=== PATIENT | female | born 1970 | race Caucasian/White ===

== ENCOUNTER → 2017-09-14 | Outpatient (CLI) | payer BC ==
[~2017-09-14] MED LIST: CALCIUM; CYMBALTA60 MG PO; FLEXERIL PO; HYDROCODON-ACE1 EAC7 PO; IBUPROFEN 600600 M1 PO; MAXALT MLT ODT10 M1 PO; MULTIVITAMINS PO; NORCO 5-325 TA1 EACH PO; VITAMIN D400 UNI1; [UNRECOGNIZED DRUG - OTHER]
== END ==
LOC: ULTRA 10:55
DX: N63.20 Unspecified lump in the left breast, unspecified quadrant (principal)

== ENCOUNTER → 2017-09-22 | Outpatient (CLI) | payer BC | LOC: RAD 09-08 11:19 | DX: Z12.31 Encounter for screening mammogram for malignant neoplasm of breast (principal) ==

== ENCOUNTER → 2018-08-30 | Outpatient (CLI) | payer BC | LOC: RAD 09:16 | DX: Z12.31 Encounter for screening mammogram for malignant neoplasm of breast (principal) ==

== ENCOUNTER 2019-06-12 07:59 | Day surgery (SDC) | payer BC ==
[~2019-06-12] VITALS: Ht 177.8 cm; Wt 124.7 kg
[~2019-06-12 07:59] MED LIST changes: +BENICAR40 MG PO; +CRESTOR10 MG PO; +MOBIC15 MG PO; +PRILOSEC OTC20 MG PO; +RIZATRIPTAN10 MG PO; +TRAMADOL 50 MG50 MG PO; +VITAMIN D2000 UNIT PO
[2019-06-12 09:21] VITALS: BP 135/71
[2019-06-12 12:45] VITALS: BP 135/71
--- NOTE | 2019-06-12 14:17 | EKG ---
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: nancy : 1970 Requested By: Leif Salmon Order Number: [id number] MD: Aldo Murdock Measurements Intervals [place] Rate: 73 P: 58 ID: [id number] QRS: -8 QRSD: 107 T: 18 QT: 399 QTc: 440 Interpretive Statements Sinus rhythm Baseline wander in lead(s) III,V3 Compared to ECG 07/06/2013 11:39:35 Sinus arrhythmia no longer present Electronically Signed On 06-12-2019 14:16:53 CDT by Aldo Murdock [email or web address] ��������������������������������������������� <ELECTRONICALLY SIGNED> ���������������������������������������� By: Aldo Murdock MD ��������������������������������������������� 06/12/19 1418 0842 0842 Aldo Murdock MD /ASHOK
--- NOTE | 2019-06-12 17:48 | O ---
[address] [address] OPERATIVE REPORT Name: BELLA MATAMOROS Room #: DEP [facility]..#: [id number] Admission: 06/12/19 ������������������ Attend Phys: Leif Salmon MD Discharge: 06/12/19 ������������������ Date of : 70 Report #: [id number] THIS REPORT FOR: //name// CC: Leif Chandler DATE OF SERVICE: 06/12/2019 SERVICE: Orthopedics. FACILITY: [facility]. SURGEON: Leif Salmon MD DIRECTOR HEDIS: Shereen Dobson NP. INDICATION FOR DIRECTOR HEDIS: Extremity positioning, arthroscope and extremity manipulation and management assistance with the debridement. COMPLICATIONS: None. DRAINS: None. SPECIMENS: None. ANESTHESIA: General. PREOPERATIVE DIAGNOSES: 1. Left elbow fracture, subluxation. 2. Left elbow loose bodies. 3. Left elbow humeral capitellum fracture. POSTOPERATIVE DIAGNOSES: 1. Left elbow fracture, subluxation. 2. Left elbow loose bodies. 3. Left elbow humeral capitellum fracture. 4. Left elbow radial head fracture. PROCEDURES: 1. Left elbow arthroscopic loose body removal 2. Left elbow extensive arthroscopic debridement with synovectomy COMPLICATIONS: None. DRAINS: None. [address] [address] OPERATIVE REPORT Name: BELLA MATAMOROS Room #: DEP [facility]#: [id number] Admission: 06/12/19 ������������������ Attend Phys: Leif Salmon MD Discharge: 06/12/19 ������������������ Date of : 70 Report #: [id number] SPECIMENS: None. FINDINGS: 1. Intact ulnohumeral joint. 2. Multiple loose bodies within the joint, removed, the largest measuring 8 x 4 x 4 mm with the second largest measuring 7 x 3 x 2 mm and several additional fragments were removed. 3. Synovitis treated with synovectomy. 4. Stable radiocapitellar joint with no significant ligamentous injury. 5. Grade 4 articular cartilage lesion of the lateral aspect of the capitellum. HISTORY AND INDICATIONS: The patient is a 48-year-old female who sustained a fall last week and came into the clinic with x-rays demonstrating a fracture. She underwent CT scan, which confirmed the presence of fracture, demonstrated loose bodies within the joint. She was indicated for surgical treatment for an optimal outcome and we discussed risks, benefits, alternatives and indications for surgical treatment. Risks include but not limited to pain, bleeding, infection, injury to nerves or blood vessels, persistent pain despite surgical intervention, malunion, nonunion, need for further surgery including further treatment of the osteochondral injury as well as complications related to anesthesia such as stroke, heart attack, pulmonary complications, thromboembolic disease and . Despite the risks, she wished to proceed. PROCEDURE IN DETAIL: After left upper extremity was correctly identified in preoperative holding area as the operative extremity, the patient was taken to the operating room where general anesthesia was induced without complication. She was turned into lateral decubitus position with left side up, right side down. She was padded appropriately. Prophylactic antibiotics were administered at appropriate time. Tourniquet was applied to the left arm. Left upper extremity was then prepped and draped in standard sterile fashion. Time-out procedure was performed. Esmarch was utilized. Tourniquet inflated to 250 mmHg. A 30 mL of sterile saline was infiltrated into the joint via posterior approach. Then, a skin aquiles incision was made to establish anteromedial portal. The loose body and hematoma in the front of the elbow was obscuring view and made difficult to safely obtain access to the anterolateral portal at this particular point, so I made a direct posterior portal and a posterolateral accessory portal in the typical fashion to perform debridement posteriorly to ensure there were no loose bodies posteriorly and to allow for better fluid circulation and better fluid distention. A proximal anterolateral portal was then established in typical fashion. The scope was placed into the elbow and the shaver was then brought in through the proximal anteromedial portal and a synovectomy was then performed anteriorly as well with the shaver as was performed in the posterior aspect of the shoulder. Care was taken to protect the anterior soft tissues. [address] [address] OPERATIVE REPORT Name: BELLA MATAMOROS JEREMIAH Room #: DEP [facility] M.R.#: [id number] Admission: 06/12/19 ������������������ Attend Phys: Leif Salmon MD Discharge: 06/12/19 ������������������ Date of : 70 Report #: [id number] There was a traumatic rent within the anterior capsule, so we were cautious with fluid pressure as well as usage of the shaver. Multiple osteochondral fragments were lavaged with a total of 6-8 were removed. The largest off of the humeral side was primarily chondral in substance and was resected with the shaver. The radial head appeared normal except that a portion could be visualized with the elbow in maximal pronation and there was an osteochondral fracture of the edge of the radial head in this area and this was resected with the shaver. I switched the scope to the anteromedial portal and then brought the shaver anterolaterally and then switched back in order to complete the resection of the fragments. All loose bodies were able to be removed in full without difficulty and then the scope was placed posteriorly once again within the left anteriorly to ensure good visualization and good fluid circulation and the medial and lateral gutters were carefully evaluated posteriorly to ensure there were no residual loose bodies and no further synovitis. After this was completed, instruments were removed and the arthroscopic effusion was drained. Portal sites were closed. Sterile dressing was applied. The patient was awakened from anesthesia and taken to recovery room in stable condition. There were no complications. All counts were recorded as correct. Postoperative plan will be for active and active assist range of motion of the elbow with passive range of motion starting at approximately 3 weeks and 5-pound lifting restriction for at least 4 weeks. ��������������������������������������������� <ELECTRONICALLY SIGNED> ���������������������������������������� By: Leif Salmon MD ��������������������������������������������� 06/12/19 1748 1508 1613 Leif Salmon MD /nt
== END 2019-06-12 11:34 | disposition home or self-care (01) ==
LOC: OR 07:59 → TBA 08:00 → OR 09:07
DX: S53.102A Unspecified subluxation of left ulnohumeral joint, initial encounter (principal); S42.452A Displaced fracture of lateral condyle of left humerus, initial encounter for closed fracture; M24.022 Loose body in left elbow; M65.88 Other synovitis and tenosynovitis, other site; S52.122A Displaced fracture of head of left radius, initial encounter for closed fracture; I10 Essential (primary) hypertension; E78.5 Hyperlipidemia, unspecified; G43.909 Migraine, unspecified, not intractable, without status migrainosus; K21.9 Gastro-esophageal reflux disease without esophagitis; Z90.49 Acquired absence of other specified parts of digestive tract; Z98.890 Other specified postprocedural states; Z79.899 Other long term (current) drug therapy; X58.XXXA Exposure to other specified factors, initial encounter; Y93.89 Activity, other specified; Y92.89 Other specified places as the place of occurrence of the external cause; Y99.8 Other external cause status
CPT/HCPCS: 50010; 50101; 50172; 50386; 52313; 54170; 55430; 56527; 57091; 57103; 62110; 62900; 70005

== ENCOUNTER → 2019-08-30 | Outpatient (CLI) | payer BC | LOC: BC 09:02 | DX: Z12.31 Encounter for screening mammogram for malignant neoplasm of breast (principal) ==

== ENCOUNTER 2019-09-19 09:12 | Emergency (ER) | payer BC ==
[~2019-09-19] VITALS: Ht 177.8 cm; Wt 122.5 kg
[2019-09-19] MEDS ORDERED: NORCO 5-325 TA1 EAC1 PO (10:21)
[2019-09-19] MEDS ORDERED: NORFLEX100 MG PO (10:21)
[2019-09-19] MEDS ORDERED: NAPROSYN500 MG PO (10:21)
[2019-09-19 10:37] VITALS: BP 156/91
== END 2019-09-19 10:38 | disposition home or self-care (01) ==
LOC: ER 09:12
DX: M54.16 Radiculopathy, lumbar region (principal); K21.9 Gastro-esophageal reflux disease without esophagitis; I10 Essential (primary) hypertension; E78.5 Hyperlipidemia, unspecified; G43.909 Migraine, unspecified, not intractable, without status migrainosus; Z98.890 Other specified postprocedural states; Z90.49 Acquired absence of other specified parts of digestive tract; Z90.89 Acquired absence of other organs

== ENCOUNTER → 2020-05-09 | Outpatient (CLI) | payer BC ==
[~2020-05-09] MED LIST changes: +ASPIR 8181 MG PO; +CLARITIN10 M3 PO; +MS CONTIN15 MG PO; +NAPROSYN500 MG PO; +NEURONTIN 300M300 M2 PO; +NORCO 5-325 TA1 EAC1 PO; +NORFLEX100 MG PO; +TIZANIDINE4 MG/1 TA1 PO
== END ==
LOC: LAB 11:34
PROVIDERS: ATTEND Student in an Organized Health Care Education/Training Program
DX: Z01.812 Encounter for preprocedural laboratory examination (principal); Z20.828 Contact with and (suspected) exposure to other viral communicable diseases

== ENCOUNTER 2020-05-14 12:13 | Inpatient (IN) | payer BC ==
[2020-05-07 09:14] LABS: HEMATOCRIT 38.1 % (37.0-47.0); HEMOGLOBIN 12.9 gm/dL (12.0-15.0); MCH 31.1 pg (26.0-34.0); MCV 91.6 fL (80.0-100.0); RBC 4.15 mil/uL (4.20-5.00); RDW 13.8 % (10.5-14.5); WBC 6.1 thou/uL (4.0-11.0)
[2020-05-07 09:36] LABS: ALBUMIN 3.7 g/dL (3.4-5.0); CALCIUM 8.9 mg/dL (8.5-10.1); CREATININE 0.8 mg/dL (0.6-1.0); POTASSIUM 4.2 mmol/L (3.5-5.1); URINE BILIRUBIN NEGATIVE (Negative); URINE BLOOD NEGATIVE (Negative); URINE CLARITY CLEAR; URINE COLOR YELLOW; URINE GLUCOSE-RANDOM* NEGATIVE (Negative); URINE KETONES NEGATIVE (Negative); URINE LEUKOCYTES-REFLEX NEGATIVE (Negative); URINE NITRITE-REFLEX NEGATIVE (Negative); URINE PROTEIN (DIPSTICK) NEGATIVE (Negative); URINE SPECIFIC GRAVITY 1.025 (1.005-1.035); URINE UROBILINOGEN 0.2 E.U./dl (0.2-1.0)
--- NOTE | 2020-05-07 15:50 | EKG ---
[facility] Trina Kitchen [place] [address] ELECTROCARDIOGRAM REPORT Name: BELLA MATAMOROS Room #: PRE [facility] M.R.#: [id number] Admission: Attend Phys: Tejas Everett MD Discharge: Date of : 70 Report #: [id number] THIS REPORT FOR: cc: Bruce Chandler Steven F. DO Couchonnal, Luis F. 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
[~2020-05-14] VITALS: Ht 177.8 cm; Wt 124.7 kg
--- NOTE | ~2020-05-14 | O ---
[facility] [place] [address] OPERATIVE REPORT Name: BELLA MATAMOROS Room #: 150-4 [facility] M.R.#: [id number] Admission: 05/14/20 Attend Phys: Tejas Everett MD Discharge: Date of : 70 Report #: [id number] THIS REPORT FOR: cc: Bruce Chandler,Tejas Mendez MD ~ CC: Tejas Chandler DATE OF SERVICE: 05/14/2020 PREOPERATIVE DIAGNOSIS: Bilateral knee medial compartment osteoarthritis. POSTOPERATIVE DIAGNOSIS: Bilateral knee medial compartment osteoarthritis. PROCEDURE: Bilateral knee medial compartment arthroplasty using Navio robotic assistance. SURGEON: Tejas Everett MD. HYDROELECTRIC STATION OPERATOR CHIEF: Bushra Powell PA-C. INDICATIONS FOR HYDROELECTRIC STATION OPERATOR CHIEF: Throughout the case, extensive retraction and manipulation of the knees were required. This was afforded to me by my licensed sales assistant. ANESTHESIA: LMA with adductor canal blocks. IMPLANTS: For bilateral knees; a size 3 Journey II Oxinium medial femoral component, a size 2 tibial component and a size 8 polyethylene. TOURNIQUET TIME: 44 minutes for the right and 48 minutes for the left. ESTIMATED BLOOD LOSS: 50 mL. COMPLICATIONS: None. SPECIMENS: None. CONDITION UPON LEAVING THE OPERATING ROOM: Stable. INDICATIONS FOR PROCEDURE: The patient is a 49-year-old female with bilateral knee medial compartment osteoarthritis. She had failed conservative measures for this and after discussion with her, she elected for bilateral medial compartment knee arthroplasty. [facility] [place] [address] OPERATIVE REPORT Name: BELLA MATAMOROS Room #: 150-4 [facility] M.R.#: [id number] Admission: 05/14/20 Attend Phys: Tejas Everett MD Discharge: Date of : 70 Report #: [id number] DESCRIPTION OF PROCEDURE: Risks, benefits, alternatives, complications were discussed in detail with the patient including but not limited to risk of anesthesia, risk of damage to nerves, arteries, blood vessels, risk for infection, bleeding, risk for continued knee pain, need for reoperation. Informed consent was obtained from the patient. Bilateral knees were appropriately marked in the preoperative holding area. Adductor canal block was placed by Anesthesia. IV Ancef was given for preoperative antibiotics. She was brought to the operating room and placed in supine position on operating room table. LMA anesthesia was induced without complication. Tourniquet was placed on bilateral thighs. Bilateral lower extremities were prepped and draped in normal sterile fashion. Timeout was performed properly identifying the patient and procedure as well as the instrumentation. All in the operating room were in agreement. Following dictation applies to both knees. Lower extremity was exsanguinated, tourniquet was inflated. Tourniquet time again was 48 minutes for the left and 44 minutes for the right knee. An anterior midline approach was made with 10 blade through the skin. Dissection was taken down sharply to the fascia and deep flaps were developed medially and laterally. Fresh 10 blade was used to make a medial parapatellar arthrotomy and the knee was inspected. There was severe medial compartment osteoarthritis with well-maintained lateral and patellofemoral compartments. ACL was intact. It was decided to proceed with unicompartmental knee arthroplasty. Reference pins were placed in the femur and the tibia. The knee was then digitally mapped using the StartMe robotic system. Intraoperative plan was made and we sized with size 3 femur with a size 2 tibia and a 9 spacer. After acceptance of the intraoperative plan, the tibial and femoral resections were made with a Navio bur. Tibial resection was cleaned with a rasp and tibia was sized, found to be a size 2. A size 2 tibial trial was pinned and drilled. A size 3 femoral trial was placed and this was then trialed with a size 8 polyethylene. The size 8 polyethylene demonstrated 1-2 millimeters of laxity medially throughout range of motion of the knee. Trial components were removed. Bony ends were thoroughly irrigated with normal saline. A final size 2 tibia, size 3 Journey II Oxinium femur were cemented in place using standard cementation techniques. While the cement cured, a periarticular injection consisting of morphine, ropivacaine, epinephrine and Toradol was placed around the knee joint capsule. After the cement cured, the tourniquet was deflated. Hemostasis was obtained with Bovie cautery. A final size 8 polyethylene was placed. A gram of vancomycin was placed deep in the joint. Fascia was closed with 0 Vicryl, skin was closed with 2-0 Vicryl, 3-0 Monocryl. Dermabond and CHENCHO dressings were applied. The patient tolerated this procedure well and went to the recovery room under care of anesthesia postoperatively. By: [id number] Tejas Everett MD /janina
[~2020-05-14 12:13] MED LIST changes: -ASPIR 8181 MG PO; -MS CONTIN15 MG PO; -NEURONTIN 300M300 M2 PO
[2020-05-14 13:34] VITALS: BP 135/76
[2020-05-14 20:38] VITALS: BP 143/89
[2020-05-14 21:00] VITALS: BP 165/85
--- NOTE | 2020-05-14 21:08 | NUR ---
PATIENT ADMITTED FORM OR ARRIVED ON THE UNIT AT 1900, PATIENT HAD JARETH KNEE REPLACEMENTS, CHENCHO DRESSING, SCD'S, KNEE HIGH JOANNA HOSE, POLAR PACKS. PATIENT C/O NAUSEA, ZOFRAN 4MG IV GIVEN, PATIENT C/O PAIN WITH JARETH KNEES, HYDROCODONE 1 TABLET GIVEN. RIGHT UPPER IV IN PLACE, D5 1/2 NS STARTED AT 100CC/HR. PATIENT GIVEN CRACKERS, JELLO, YOGURT, AND LEMON-ROSEBUD SODA GIVEN, ALSO WATER. ADMISSION DONE AND COMPLETED, REPORT GIVEN TO JENNY/RN.
[2020-05-15 00:02] VITALS: BP 153/80
[2020-05-15 03:09] VITALS: BP 136/70
--- NOTE | 2020-05-15 03:36 | NUR ---
ASSESSED AT START OF SHIFT. PT A&OX4 WITH JARETH KNEE SX. CHENCHO DRESSING, POLAR PACK, SCD'S AND TEDHOSE IN PLACE. PAIN MANAGED WITH PO PILL. IV INTACT AND FLUIDS INFUSING. PT TRIED TO VOID VIA BEDPAN NO OUTPUT. BLADDER SCAN DONE AND 1600 POST VOID PT EXPRESSED RELIEF. FALL PREC IN PLACE, CALL LIGHT IN REACH WILL CONT TO MONITOR
[2020-05-15 05:28] LABS: HEMATOCRIT 34.7 % (37.0-47.0); HEMOGLOBIN 11.7 gm/dL (12.0-15.0); MCH 30.6 pg (26.0-34.0); MCHC 33.6 g/dL (28.0-37.0); RBC 3.81 mil/uL (4.20-5.00); RDW 13.8 % (10.5-14.5); WBC 12.5 thou/uL (4.0-11.0)
[2020-05-15 07:30] VITALS: BP 127/78
[2020-05-15] MEDS ORDERED: MS CONTIN15 MG PO (11:27)
[2020-05-15] MEDS ORDERED: HYDROCODON-ACE1 EAC7 PO (11:27)
[2020-05-15] MEDS ORDERED: ASPIR 8181 MG PO (11:27)
[2020-05-15] MEDS ORDERED: NEURONTIN 300M300 M2 PO (11:28)
--- NOTE | 2020-05-15 14:48 | NUR ---
PT ADMITTED RELATED TO JARETH UNICOMPARTMENTAL KNEE REPLACEMENTS. CM REVIEWED CHART AND SPOKE WITH CARE TEAM. CM MET WITH PT AND SPOUSE AT BEDSIDE THIS DAY. CM ROLE INTRODUCED. PT INDICATED SHE LIVES IN A HOUSE WITH HER FAMILY WITH 2 STEPS TO ENTER AND 22 STEPS INSIDE. 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 PT INDICATED NO DME PILOT CONTROL OPERATOR HELPER. PT WAS ISSUED A FWW BY PROVIDER PLUS. PT INDICATED SHE IS ESTABLISHED WITH OP PT AT [facility] FIRST APPOINTMENT ON TUESDAY. PT INDICATED SHE PLANS TO RETURN HOME ONCE MEDICALLY STABLE. CARE TEAM INDICATING THEY ARE AWAITING AFTERNOON PT TREAT TO DETERMINE IS PT IS MEDICALLY STABLE TO DC HOME TODAY. PT IS SET WITH FWW AND OUTPATIENT REHAB APPOINTMENT. NO OTHER CM INTERVENTION INDICATED AT THIS TIME.
[2020-05-15 16:35] VITALS: BP 124/53
--- NOTE | 2020-05-15 18:14 | NUR ---
PT IS AOX4, VSS, PAIN IN BLE CONTROLLED WITH ORAL PAIN ANALGESIC. PT HAS JOANNA HOSES, SCD, AND POLAR PACK. FALL PRECAUTIONS IN PLACE, CALL LIGHT IN REACH. WILL CONTINUE TO MONITOR.
[2020-05-15 19:50] VITALS: BP 130/74
--- NOTE | 2020-05-16 02:13 | NUR ---
ASSUMED CARE OF PT AT 1900. PT IS A/O X4. DRSGS ARE C/D/I. JOANNA HOSE, POLAR PACK, AND SCD'S IN PLACE. PT C/O PAIN, AND INSOMNIA. PRN PAIN AND SLEEP MEDICATION GIVEN DIRECTED. PT IS CURRENTLY IN BED AND APPEARS TO BE SLEEPING. FALL PRECAUTIONS ARE IN PLACE, CALL LIGHT IS WITHIN REACH. WILL CONTINUE TO MONITOR.
[2020-05-16 05:03] LABS: HEMATOCRIT 34.1 % (37.0-47.0); HEMOGLOBIN 11.6 gm/dL (12.0-15.0); MCH 31.3 pg (26.0-34.0); MCHC 34.2 g/dL (28.0-37.0); MCV 91.7 fL (80.0-100.0); RBC 3.72 mil/uL (4.20-5.00); RDW 14.4 % (10.5-14.5); WBC 10.2 thou/uL (4.0-11.0)
[2020-05-16 08:32] VITALS: BP 146/85
--- NOTE | 2020-05-16 17:23 | NUR ---
Assumed care of pt at 0700. Pt a&ox4. Pain controlled with prn pain meds. Dressings c/d/i. Polar packs in place. JOANNA hoshome and SCDs in place. Pt worked with physical therapy. Possible d/c tomorrow. Heating pad provided per pt request. Call light within reach. Fall precautions in place. Will continue to monitor.
[2020-05-16 17:41] VITALS: BP 154/80
[2020-05-16 19:00] VITALS: BP 147/82
--- NOTE | 2020-05-17 03:22 | NUR ---
ASSESSMENT COMPLETED. PT IS UP WITH ASSIST X 1 TO THE BSC. JARETH KNEES WITH CHENCHO DRSG WELL POLAR PAKS IN PLACE. SCDS AND TEDS IN PLACE. DENIES NAUSEA AND VOMITING. CALLS APPROPRIATELY.
[2020-05-17 03:45] VITALS: BP 136/86
[2020-05-17 05:28] LABS: HEMATOCRIT 35.6 % (37.0-47.0); HEMOGLOBIN 11.8 gm/dL (12.0-15.0); MCH 30.7 pg (26.0-34.0); MCHC 33.3 g/dL (28.0-37.0); MCV 92.4 fL (80.0-100.0); RBC 3.85 mil/uL (4.20-5.00); RDW 14.6 % (10.5-14.5)
[2020-05-17 07:15] VITALS: BP 129/83
[2020-05-17 08:30] VITALS: BP 129/83
[2020-05-17 11:28] VITALS: BP 129/83
[2020-05-17 12:54] VITALS: BP 129/83
== END 2020-05-17 12:45 | disposition home or self-care (01) | DRG 462 ==
LOC: OR 12:13 → TBA 12:13 → OR 13:05 → 4S 17:45 → TBA 19:36 → 4S 05-17 12:45
PROVIDERS: ADMIT Orthopaedic Surgery; ATTEND Orthopaedic Surgery
PROC: 0SRD0L9 Replacement of Left Knee Joint with Medial Unicondylar Synthetic Substitute, Cemented, Open Approach (ICD-10-PCS; principal; 2020-05-14)
PROC: 8E0Y0CZ Robotic Assisted Procedure of Lower Extremity, Open Approach (ICD-10-PCS; principal; 2020-05-14)
PROC: 0SRC0L9 Replacement of Right Knee Joint with Medial Unicondylar Synthetic Substitute, Cemented, Open Approach (ICD-10-PCS; principal; 2020-05-14)
DX: M17.2 Bilateral post-traumatic osteoarthritis of knee (principal); Z79.899 Other long term (current) drug therapy
CPT/HCPCS: 10102; 50010; 50101; 50415; 50915; 50954; 51130; 51225; 51320; 51771; 53078; 53370; 54118; 56527; 56528; 57095; 57103; 57110; 57127; 57180; 62110; 62900; 64039; 70005

== ENCOUNTER → 2020-08-28 | Outpatient (CLI) | payer BC ==
[~2020-08-28] MED LIST changes: +ASPIR 8181 MG PO; +MS CONTIN15 MG PO; +NEURONTIN 300M300 M2 PO
== END ==
LOC: BC 08:58
PROVIDERS: ATTEND Neuromusculoskeletal Medicine & OMM
DX: Z12.31 Encounter for screening mammogram for malignant neoplasm of breast (principal)

== ENCOUNTER → 2021-08-14 | Outpatient (CLI) | payer BC ==
[~2021-08-14] MED LIST changes: +GABAPENTIN600 M1 PO; +MAGNESIUM400 M1 PO; +MULTI VITAMIN1 EACH PO; +PROBIOTIC1 EAC6 PO
[2021-08-14 09:31] LABS: HEMATOCRIT 36.7 % (37.0-47.0); HEMOGLOBIN 12.1 gm/dL (12.0-15.0); MCV 88.1 fL (80.0-100.0); RBC 4.16 mil/uL (4.20-5.00); RDW 14.3 % (10.5-14.5); WBC 5.2 thou/uL (4.0-11.0)
[2021-08-14 09:41] LABS: INR 0.95; PROTIME 10.4 Seconds (10.5-12.1)
[2021-08-14 09:57] LABS: URINE BILIRUBIN NEGATIVE (Negative); URINE BLOOD NEGATIVE (Negative); URINE CLARITY CLEAR; URINE COLOR YELLOW; URINE GLUCOSE-RANDOM* NEGATIVE (Negative); URINE KETONES NEGATIVE (Negative); URINE LEUKOCYTES-REFLEX NEGATIVE (Negative); URINE NITRITE-REFLEX NEGATIVE (Negative); URINE PROTEIN (DIPSTICK) NEGATIVE (Negative); URINE SPECIFIC GRAVITY >= 1.030 (1.005-1.035); URINE UROBILINOGEN 0.2 E.U./dl (0.2-1.0)
[2021-08-14 10:05] LABS: CALCIUM 9.2 mg/dL (8.5-10.1); CREATININE 0.8 mg/dL (0.6-1.0); POTASSIUM 4.3 mmol/L (3.5-5.1)
--- NOTE | 2021-08-17 07:31 | EKG ---
[address] [address] ELECTROCARDIOGRAM REPORT Name: BELLA MATAMOROS Room #: [facility]#: [id number] Admission: 08/14/21 Attend Phys: Tejas Everett MD Discharge: Date of : 70 Report #: [id number] [facility] Test Date: 2021-08-14 Test Time: 09:19:09 Pat Name: BELLA MATAMOROS Department: Room: Gender: F Gamemaster: CLARITZA CHAPARRO : 1970 Requested By: Tejas Everett Order Number: [id number] : Bill Rosas Measurements Intervals [place] Rate: 76 P: 70 NM: 190 QRS: -4 QRSD: 101 T: 23 QT: 387 QTc: 436 Interpretive Statements Sinus rhythm Compared to ECG 05/07/2020 09:10:16 No significant changes Electronically Signed On 08-17-2021 7:31:16 DRIVER COURIER by Bill Rosas [email or web address] <ELECTRONICALLY SIGNED> By: Bill Rosas MD, [facility] 08/17/21 0731 8 8 Bill Rosas MD, FACC /EPI
== END ==
LOC: PAC 08:44
PROVIDERS: ATTEND Orthopaedic Surgery
DX: Z01.812 Encounter for preprocedural laboratory examination (principal); T84.038A Mechanical loosening of other internal prosthetic joint, initial encounter

== ENCOUNTER → 2021-08-17 | Outpatient (CLI) | payer BC | LOC: BC 08:56 | PROVIDERS: ATTEND Neuromusculoskeletal Medicine & OMM | DX: Z12.31 Encounter for screening mammogram for malignant neoplasm of breast (principal); N64.89 Other specified disorders of breast ==

== ENCOUNTER 2021-08-26 09:14 | Observation (INO) | payer BC ==
[~2021-08-26] VITALS: Ht 175.3 cm; Wt 122.5 kg
[2021-08-26 10:38] VITALS: BP 137/79
--- NOTE | 2021-08-26 17:19 | NUR ---
ADMITTED TO 4S FOR RIGHT TOTAL KNEE REPLACEMENT. A/O X 4. ROOM AIR. BEDREST. RIGHT HAND IV WITH D5 1/2 NS INFUSING @ 100 MLS/HR. CHENCHO DRESSING ON RIGHT KNEE AND POLAR PACK ON RIGHT KNEE. BILATERAL TEDS ON AND SCDS. AT BEDSIDE. PAIN 5/10 NORCO GIVEN PRN.
[2021-08-26 20:55] VITALS: BP 127/75
--- NOTE | 2021-08-27 01:36 | NUR ---
ASSESSMENT COMPLETED. PT IS ALERT AND ORIENTED. PLEASANT. LEFT KNEE WITH POLAR RYAN IN PLACE. SHE ALSO HAS SCDS AND TEDS IN PLACE. PT BEEN ABLE TO WALK TO THE BATHROOM WITH SBA, SHE IS VOIDING OKAY. DENIES NAUSEA OR VOMITING-REPORTS THE DIZZINESS IS MUCH BETTER.GOOD CSM TO R FOOT. CALLIHT WITHIN REACH.
[2021-08-27 08:12] VITALS: BP 121/75
--- NOTE | 2021-08-27 09:19 | NUR ---
ASSUMED PT CARE THIS AM. PT IS ALERT & ORIENTED X4. PT HAS IV SITE ON RHAND RUNNING D5 1/2 NS @100ML/HR. PT IS ON ROOM AIR. PT HAS BILATERAL JOANNA HOSES, CHENCHO DRESSING, [facility], SCD. PT C/O OF PAIN AND GIVEN PAIN MEDICATION PER PT REQUEST. PHYSICAL THERAPY WILL BE WORKING WITH PT THIS AM. PT IS UP WITH ASSIST X1 WITH GAITBELT AND WALKER TO THE BATHROOM. WILL CONTINUE TO MONITOR PT. FOLLOW POC.
--- NOTE | 2021-08-27 09:57 | NUR ---
Cm visited with jessica at bedside, check to see if she is needed any DME. She has FWW and outpt therapy is set up for [facility] in [facility].
[2021-08-27 14:29] VITALS: BP 121/75
--- NOTE | 2021-08-31 09:55 | O ---
[facility] [place] [address] OPERATIVE REPORT Name: BELLA MATAMOROS Room #: 448-P [facility] Tolu Geiger#: [id number] Admission: 08/26/21 Attend Phys: Tejas Everett MD Discharge: 08/27/21 Date of : 70 Report #: [id number] THIS REPORT FOR: cc: Naomie Crisostomo Beth RNP Abraham, Scott M. MD ~ DATE OF SERVICE: 08/26/2021 PREOPERATIVE DIAGNOSIS: Right knee medial compartment knee arthroplasty, aseptic loosening. POSTOPERATIVE DIAGNOSIS: Right knee medial compartment knee arthroplasty, aseptic loosening. PROCEDURES: Conversion of a medial compartment knee arthroplasty to a total knee arthroplasty using Navio robotic assistance. SURGEON: Tejas Everett MD MANAGER SCHOOL: Bushra Powell PA-C. INDICATION FOR MANAGER SCHOOL: Throughout the case, extensive retraction, manipulation of the knee was required. This was afforded to me by my seo assistant. ANESTHESIA: LMA with adductor canal block. IMPLANTS: A [employer] size 5 Journey II BCS Oxinium femur, size 4 tibia, size 10 constrained polyethylene and size 29 patella. TOURNIQUET TIME: 70 minutes. ESTIMATED BLOOD LOSS: 25 mL. COMPLICATIONS: None. SPECIMENS: None. CONDITION UPON LEAVING THE OR: Stable. INDICATIONS FOR PROCEDURE: The patient is a 50-year-old female who is over a year out from bilateral unicompartmental knee arthroplasties of left knee, did very well; however, she has had continued pain in the right knee and a workup to determine her source of pain was performed, she had a bone scan that showed increased uptake along her medial tibial component as well as lucency. On her x-ray, it was felt that she was demonstrating an aseptic loosening after ruling of out infection. After discussion with her regarding options, she elected for [facility] [address] [place] [address] OPERATIVE REPORT Name: BELLA MATAMOROS JEREMIAH Room #: 448-P [facility] Tolu Geiger#: [id number] Admission: 08/26/21 Attend Phys: Tejas Everett MD Discharge: 08/27/21 Date of : 70 Report #: [id number] conversion to total knee arthroplasty. DESCRIPTION OF PROCEDURE: Risks, benefits, alternatives, complications were discussed in detail with the patient including but not limited to risk of anesthesia, risk of damage to nerves, arteries, blood vessels, risk for infection, bleeding, risk for continued knee pain, need for reoperation. Informed consent was obtained from the patient. Right knee was appropriately marked in the preoperative holding area. Adductor canal block was placed by Anesthesia. She was brought to the operating room and placed in supine position on the operating table. LMA anesthesia was induced without complication. Tourniquet was placed on the right thigh. Right lower extremity was prepped and draped in normal sterile fashion. Timeout was performed properly identifying the patient and procedure as well as the instrumentation and implants. All in the operating room in agreement. Right lower extremity was exsanguinated and tourniquet inflated. Tourniquet time was 70 minutes. The previous scar was used and a 10 blade was used to make an incision through the scar. Dissection was taken down sharply to the fascia and deep flaps were developed medially and laterally. Fresh 10 blade was used to make a medial parapatellar arthrotomy and the knee was inspected, unicompartmental knee arthroplasty was in place. Lateral femoral condyle did demonstrate an area of grade 4 chondromalacia. Reference pins were placed in the femur and the tibia. The knee was then digitally mapped using the Moovit robotic system. After mapping the knee, the medial femoral condylar component was removed with curved osteotomes, the tibial component was easily removed with an osteotome and did demonstrate fibrous connective tissue between the cement mantle in the bone. It was felt that this was the source of her pain. After this, a distal femoral cut was made with Navio bur. Distal femoral cutting block was pinned in place and chamfer cuts were made. Attention was turned to the tibia. Tibial resection guide was pinned in place using Navio for placement and tibial resection was made. Flexion and extension gaps were checked and found to have good balance in flexion and extension both medially and laterally. Tibia sized, found to be a size 4. Size 4 tibial trial was placed, pinned and punched. Size 5 femoral trial was placed and box cut was made. This was then trialed with a size 10 polyethylene. Size 10 polyethylene demonstrated 1-2 mm laxity medially throughout range of motion of the knee laterally. She did demonstrate up to 3 mm laterally and deep flexion. It was felt we can make up for this with a constrained implant, 9 mm of bone was resected from the posterior surface of the patella and a size 29 patellar trial button was placed. Knee was taken through range of motion, found to be stable, found to have good patellar tracking. Trial components were removed. Bone ends were thoroughly irrigated with normal saline. A final size 4 tibia, size 5 Journey II BCS Oxinium femur and a size 29 patella were cemented in place using standard cementation techniques. While the cement cured, a periarticular injection consisting of morphine, ropivacaine, epinephrine, Toradol was placed around the knee joint capsule. After the cement cured, tourniquet was deflated. Hemostasis was obtained with Bovie cautery. Final size 10 constrained [facility] [address] [place] [address] OPERATIVE REPORT Name: BELLA MATAMOROS JEREMIAH Room #: 448-P [facility] Tolu Geiger#: [id number] Admission: 08/26/21 Attend Phys: Tejas Everett MD Discharge: 08/27/21 Date of : 70 Report #: [id number] polyethylene was placed. A gram of vancomycin was placed deep in the joint. Fascia was closed with 0 Vicryl. Skin was closed with 2-0 Vicryl, skin staple and a CHENCHO dressing was applied. The patient tolerated this procedure well and went to recovery room under care of Anesthesia postoperatively. <ELECTRONICALLY SIGNED> By: Tejas Everett MD 08/31/21 [id number] Tejas Everett MD /nt
== END 2021-08-27 15:00 | disposition home or self-care (01) ==
LOC: OR 09:14 → TBA 09:25 → OR 13:49 → 4S 15:37 → OR 15:38 → 4S 15:38 → OR 17:41 → 4S 08-27 15:00
PROVIDERS: ADMIT Orthopaedic Surgery; ATTEND Orthopaedic Surgery
DX: M17.11 Unilateral primary osteoarthritis, right knee (principal); Z20.822 Contact with and (suspected) exposure to COVID-19
CPT/HCPCS: 50010; 50101; 50415; 50954; 51130; 51225; 51412; 53000; 53078; 53365; 56527; 56528; 57095; 57103; 57110; 57127; 57180; 62110; 62900; 64043; 65060; 70005